=== PATIENT | female | born 1990 | race Caucasian/White ===

== ENCOUNTER 2016-10-29 15:03 | Inpatient (IN) | payer MEDICAID ==
[~2016-10-29] VITALS: Ht 165.1 cm; Wt 99.8 kg
--- NOTE | ~2016-10-29 | PA ---
Unit #: [id number] #: [id number] Patient: PARK GUZMAN [id number] [facility] [address] [place] [address] [id number] MR#: [id number] NAME: PARK GUZMAN ROOM: P252 Age: 26 Sex: F Admission Date: 10/29/2016 : 1990 Date of Assessment: 10/30/2016 Attending Physician: Patrick Correa M.D. Admitting Physician: Patrick Correa M.D. Primary Care Physician: Primary Care Physician No PSYCHIATRIC ASSESSMENT IDENTIFYING INFORMATION The patient is a 26-year-old white female admitted to the [address] [place] [address] Unit with increasing depression and suicidal ideation. CHIEF COMPLAINT None given. INFORMANT Patient and chart, reliability good. HISTORY OF PRESENT ILLNESS The patient is a 26-year-old white female admitted to the [address] [place] [address] Unit after she had presented to [facility] in [place] reporting increasing suicidal ideation with thoughts to overdose. The patient denies prior suicide attempts or gestures. She has a history of treatment with Lexapro prescribed by her primary care physician over the past 6 months and reports that the medication has been fairly effective for her. She reports, however, that the addition of Depakote which her provider prescribed for "mood stabilization" has not been successful, and she (1) __ this medication. The patient reports multiple stressors including the of her mother in September 2015. She has not yet adequately grieved this loss. The patient is now denying suicidal ideation and is pushing for discharge. She does request discontinuation of Depakote. She reports some difficulty with sleep and loss of appetite. She also reports a history of some weight gain and anergy. has removed firearms from the home per the patient's report. The patient has two prior hospitalizations for suicidal ideation, once in 2001 and once in 2012. In 2012, she attempted to overdose. PAST PSYCHIATRIC HISTORY As above. PAST MEDICAL HISTORY Significant for a history of restless legs syndrome. MEDICATIONS Lexapro, Requip, Depakote, and Ativan. ALLERGIES Menthol, hydroxyzine. FAMILY HISTORY The patient reports positive family history of depressive illness. Unit #: [id number] #: [id number] Patient: PARK GUZMAN SOCIAL HISTORY The patient lives with her and 2 children. 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 She reports no use of alcohol, tobacco, or street drugs. She does use a vapor cigarette. MENTAL STATUS EXAMINATION Examination at this time reveals the patient to be a well-developed well-nourished white female appearing stated age. She is in no apparent physical distress at the time of examination. She is awake, alert, and oriented in all spheres. Her mood is dysphoric, her affect blunted. Speech is generally well coherent. There are no gross deficits in memory or cognition noted. Intelligence is judged to be in the average range based on fund of knowledge. The patient is cooperative throughout the interview. She is currently denying suicidal or homicidal ideation or psychotic features. Judgment and insight appear to be intact. ASSETS AND LIABILITIES The patient's assets: Motivation for change. Liabilities: Lack of resources. DIAGNOSTIC IMPRESSION 1. Major depressive disorder, recurrent, moderate. 2. Restless legs syndrome. TREATMENT PLAN The patient remains hospitalized for safety and stabilization. I will, as per her request, discontinue Depakote, and she does not seem to present any behaviors or history consistent with a bipolar spectrum disorder, and instead began Abilify 2 mg at night in hopes of augmenting the antidepressant effect of Lexapro. The patient will participate in appropriate order of milieu activities, and discharge could take place as early as tomorrow with followup to take place through the auspices of community mental health resources in the [facility]. Dictated by... Patrick Correa M.D. KATELYN/josie TD: 10/30/2016 13:09 JOB #: [id number] PSYCHIATRIC ASSESSMENT Page 1 of 1 X Patrick Correa MD PSYCHIATRIC ASSESSMENT
--- NOTE | ~2016-10-29 | HP ---
Unit #: [id number] #: [id number] Patient: PARK GUZMAN [id number] [place] [address] [id number] MR#: [id number] NAME: PARK GUZMAN ROOM: P252 Age: 26 Sex: F Admission Date: 10/29/2016 : 1990 Attending Physician: Patrick Correa M.D. Admitting Physician: Patrick Correa M.D. Primary Care Physician: Primary Care Physician No HISTORY AND PHYSICAL HISTORY OF PRESENT ILLNESS Park is a 26 year old admitted to [address] [place] [address] with depression and verbalizing wanting to hurt herself. PAST MEDICAL HISTORY 1. Obesity. 2. History of migraine headaches. 3. History of colon polyps. PAST SURGICAL HISTORY 1. Polypectomy. 2. Pelvic lap. 3. Hysterectomy. 4. x2. ALLERGIES Menthol, Vistaril. SOCIAL HISTORY Vaps nicotine on daily basis. Drinks alcohol socially. Denies illicit drug use. FAMILY HISTORY Medically noncontributory. REVIEW OF SYSTEMS CONSTITUTIONAL: No fever or chills. HEENT: Denies any sore throat, ear pain or runny nose. CARDIOVASCULAR: Denies chest pain, irregular heart rhythm or palpitations. CHEST: Denies shortness of breath or cough. No hemoptysis. GASTROINTESTINAL: Denies nausea, vomiting, diarrhea or chronic constipation. ENDOCRINE: Denies history of increased thirst or urination. No recent significant weight loss or gain. GENITOURINARY: Denies dysuria, frequency, or hematuria. SKIN: Denies any rashes. HEMATOLOGIC: Denies history of increased bleeding or bruising. MUSCULOSKELETAL: Denies any hot, swollen joints. No generalized muscle pain. NEUROLOGIC: Denies problems with vision or speech. No frequent, severe headaches. No numbness, tingling or weakness in any extremities. Denies loss of bladder or bowel control. Unit #: [id number] #: [id number] Patient: PARK GUZMAN CURRENT MEDICATIONS 1. Abilify 2 mg q.h.s. 2. Lorazepam 1 mg t.i.d. p.r.n. 3. Lexapro 20 mg daily. 4. Milk of Magnesia p.r.n. 5. Maalox p.r.n. 6. Tylenol p.r.n. 7. Ropinirole 1 mg q.h.s. 8. Nicotine patch 14 mg daily. PHYSICAL EXAMINATION GENERAL: Alert, obese, in no apparent distress. VITAL SIGNS: Blood pressure 146/72, heart rate 88, respirations 16, temperature 98.6. WEIGHT: 220. HEIGHT: 5 feet 5 inches. SKIN: Warm and dry without rash or lesion. HEENT: Normocephalic. TMs not viewed. Oral and nasal passages clear. Conjunctivae clear. PERRLA. EOMs intact. NECK: Supple without lymphadenopathy or thyromegaly. HEART: Regular rate and rhythm without murmur. LUNGS: Clear. ABDOMEN: Soft, nontender. : Not done. EXTREMITIES: No evidence of cyanosis, clubbing or edema. Moves all without focal deficit. NEUROLOGICAL: Grossly within normal limits. Cranial Nerves: II: Visual mena are intact. III, IV AND : Extraocular movements are intact. Pupils are equal, round and reactive to light. V: Facial sensation is grossly normal. VII: Facial movements and expression are normal. VIII: Auditory acuity grossly intact. IX, X: Uvula is midline. Phonation is normal. XI: Patient shrugs shoulders and turns head normally. XII: Tongue protrudes in the midline. Sensory and Motor Function: Sensory and motor sensation is grossly normal. Motor: moves all extremities well. Coordination: Gait is normal. Deep Tendon Reflexes: Intact. IMPRESSION Psychiatric admission. RECOMMENDATIONS PSYCHIATRIC: Per psychiatrist. MEDICAL: See no contraindication to participate in facility's activities. MEDICAL PROGNOSIS Good. MEDICAL CONDITION Stable. Dictated by... Rebecca Ramírez P.A.-C. for Chris Diggs M.D. Unit #: [id number] #: [id number] Patient: PARK GUZMANMERARY/christopher TD: 10/30/2016 19:35 JOB #: [id number] HISTORY AND PHYSICAL Page 1 of 1 X Rebecca Ramírez HISTORY AND PHYSICAL
--- NOTE | ~2016-10-29 | DS ---
Unit #: [id number] #: [id number] Patient: PARK GUZMAN [id number] [facility] [address] [place] [address] [id number] MR#: [id number] NAME: PARK GUZMAN ROOM: P252 Age: 26 Sex: F Admission Date: 10/29/2016 : 1990 Discharge Date: 10/31/2016 Attending Physician: Patrick Correa M.D. Primary Care Physician: Primary Care Physician No DISCHARGE SUMMARY REASON FOR ADMISSION The patient is a 26-year-old white female, admitted with increasing depression and suicidal ideation. HOSPITAL COURSE The patient was admitted to the [address] [place] [address] unit and placed on suicide precautions. She was continued on her previously prescribed lorazepam and Lexapro, Depakote which had been ordered by her primary care physician for "mood stabilization" was discontinued and the patient instead begun on Abilify 2 mg daily and hopes of augmenting the antidepressant effect of Lexapro. The patient pushed for discharge on 10/30 but agreed to remain one further day of hospitalization given suicidal threats made at the time of admission. By 10/31, the patient was in much brighter spirits. She denied suicidal ideation and was agreeable with plan for discharge with followup to take place through the auspices of community mental health resources in the [place], [place] area. Discharge is ordered. DISCHARGE DIAGNOSES [place] I major depressive disorder, recurrent, moderate. [place] II [place] III Restless leg syndrome. [place] IV [place] V DISPOSITION ON DISCHARGE The patient is discharged on the following medications: 1. Lexapro 20 mg daily for depression 2. Abilify 2 mg daily for depression 3. Requip 1 mg at bedtime for restless leg syndrome 4. Ativan 1 mg three times daily p.r.n. anxiety PROGNOSIS The patient's prognosis is considered good. She was informed of the risks and benefits of medications ordered including the possible risks of tardive dyskinesia with long-term use of antipsychotic medications such as Abilify. She was likewise apprised of FDA mandated warnings regarding the effects of atypical antipsychotics on the metabolism of lipids and glucose. DIET AND ACTIVITY Unit #: [id number] #: [id number] Patient: PARK GUZMAN No dietary or physical restrictions were placed on the patient at the time of discharge. Follow up will take place through the auspices of community health resources in the [facility]. Dictated by.Oumou. Patrick Correa M.D. [place] TD: 11/01/2016 05:32 JOB #: [id number] DISCHARGE SUMMARY Page 1 of 1 X Patrick Correa MD X DISCHARGE SUMMARY
[2016-10-30 09:52] LABS: BASOPHIL# 0.1 X10e3 (0-0.3); BASOPHIL% 0.8 % (0-2.5); EOSINOPHIL# 0.2 X10e3 (0-0.7); EOSINOPHIL% 3.3 % (0.0-7.0); HEMATOCRIT 39.4 % (35.0-45.0); HEMOGLOBIN 13.4 gm/dL (12.0-16.0); LYMPHOCYTE# 2.4 X10e3 (1.0-3.5); LYMPHOCYTE% 33.4 % (17.0-45.0); MEAN CELL VOLUME 86.2 FL (83-96); MEAN CORPUSCULAR HEMOGLOBIN 29.3 PG (28-34); MEAN PLATELET VOLUME 8.4 FL (6.5-11.5); MONOCYTE# 0.5 X10e3 (0-1.0); MONOCYTE% 6.5 % (3.0-12.0); NEUTROPHIL# 3.9 X10e3 (1.5-7.1); PLATELET COUNT 207 X10e3 (140-420); RED BLOOD COUNT 4.58 X10e (3.90-5.30); RED CELL DISTRIBUTION WIDTH 12.5 % (11.0-15.5)
[2016-10-30 09:58] LABS: DIFF IND NO
[2016-10-30 09:58] LABS: URINE APPEARANCE CLEAR; URINE BILIRUBIN NEG (NEG); URINE BLOOD NEG (NEG); URINE COLOR YELLOW; URINE GLUCOSE NEG (NEG); URINE KETONE NEG (NEG); URINE LEUKOCYTE ESTERASE NEG (NEG); URINE NITRATE NEG (NEG); URINE PH 7.5 (5-8); URINE PROTEIN NEG (NEG); URINE SPECIFIC GRAVITY 1.013 (1.003-1.035); URINE UROBILINOGEN 0.2 MG/DL (NEG)
[2016-10-30 10:15] LABS: ALBUMIN SERUM 4.3 g/dL (3.5-5.0); BILIRUBIN,TOTAL 0.6 mg/dL (0.2-2.0); BUN/CREATININE RATIO 11.42; CALCIUM SERUM 9.7 mg/dL (8.4-10.2); CREATININE SERUM 0.7 mg/dL (0.6-1.4); GLOM FILT RATE Estimated 117.9 mL/min (>60); POTASSIUM 4.4 mmol/L (3.5-5.1); PROTEIN TOTAL SERUM 7.2 g/dL (6.0-8.3)
[2016-10-30 11:51] LABS: AMPHETAMINE NEG (NEG); BARBITURATES NEG (NEG); BENZODIAZEPINES POS (NEG); COCAINE NEG (NEG); MARIJUANA NEG (NEG); OPIATES NEG (NEG); TRICYCLIC ANTIDEPRESSANTS NEG (NEG); U METHADONE NEG (NEG)
== END 2016-10-31 13:40 | disposition home or self-care (01) | DRG 885 ==
LOC: P2L 21:15
PROVIDERS: Specialist
DX: F33.1 Major depressive disorder, recurrent, moderate (principal); R45.851 Suicidal ideations; G25.81 Restless legs syndrome
CPT/HCPCS: 80053; 80307; 81003; 85025